=== PATIENT | female | born 1945 | race Caucasian/White ===

== ENCOUNTER → 2016-07-30 | Day surgery (SDC) | payer OTHER ==
[2016-07-22 11:02] VITALS: Ht 157.5 cm; Wt 65.9 kg
[~2016-07-30] VITALS: Ht 157.5 cm; Wt 65.9 kg
[~2016-07-30] MED LIST: 500ML BSS 0.3ML EPI 1:1000PF IRRIG ONE; ACETAMINOPHEN 325 MG TAB PO PRN; AMVISC PLUS 0.8ML SYRINGE INT OCU ONE; ATROPINE SULFATE 0.1 MG/ML 5ML SYR IV PRN; AcetaZOLAMIDE 250 MG TAB PO SCH; BETAXOLOL HCL 0.25% OP SUSP PER DROP CHARGE OPL SCH; BRIMONIDINE TART 0.2% OP SOLN PER DROP CHARGE ONE; BSS FLUSH ONE; CALC600T9 PO; ENDOCOAT 0.85ML SYRINGE INT OCU ONE; EpHEDrine SULFATE INJ 50 MG/ML AMP IV PRN; EpINEphrine INJ 1MG/ML AMP 1 MG/ML AMP ONE; LACTATED RINGER'S 1000ML 500 ML IV SCH; LIDOCAINE 4% OP SOLN DROP CHARGE ONE; LIDOCAINE 4% OP SOLN DROP CHARGE OPL SCH; LIDOCAINE HCL 1% MPF 2 ML VIAL ONE; MIDAZOLAM HCL 1 MG/ML 2ML VIAL ONE; MIX: 4ML BSS 1ML EPI 1:1000 PF INSTIL ONE; MOXIFLOXACIN OPH SOLN PER DROP CHARGE ONE; MULTTAB58 PO; OCUCOAT 1 ML SOLN IO ONE; OFLO0.3S4 OPL; POVIDONE-IODINE OP SOLN 30 ML BTL ONE; PRED1SUS3 OPL; PROPARACAINE 0.5% OP SOLN PER DROP CHARGE OPL SCH; TOBRAMYCIN/DEXAMETHASONE OPH OINT PER APPLN CHARGE ONE
--- NOTE | 2016-07-30 08:29 | History & Physical Bridge - [place] ---
H&P Re-Evaluation Bridge Note: I have examined the patient, reviewed the History & Physical and in the interval since the performance of the History & Physical I have noted the following changes of clinical significance: No changes noted
[2016-07-30] MEDS: PHENYLEPHRINE HCL 2.5% OP SOLN PER DROP CHARGE OPL SCH ×2 (10:33→10:37)
[2016-07-30] MEDS: TROPICAMIDE 1% OP SOLN PER DROP CHARGE OPL SCH ×2 (10:34→10:38)
[2016-07-30] MEDS: CYCLOPENTOLATE HCL 1% OP SOLN PER DROP CHARGE OPL SCH ×2 (10:35→10:39)
[2016-07-30] MEDS: MOXIFLOXACIN OPH SOLN PER DROP CHARGE OPL SCH ×2 (10:36→10:45)
--- NOTE | 2016-07-30 11:12 | Discharge Instructions-SurgCtr ---
Discharge Instructions Date of Service Jul 30, 2016. Visit Reason for Visit: Cataract Left Eye Discharge Discharge Diagnosis / Problem: lens implant left eye Discharge Goals Goal(s): Improve function Activity Recommendations Activity Limitations: resume your previous activity Lifting Limitations: no more than 10 pounds Exercise/Sports Limitations: gradually increase as tolerated May Resume Sexual Activity: when tolerated Shower/Bathe: tomorrow Driving or Machine Use: resume 1 day after discharge Anesthesia . Post Anesthesia Instructions: If you have had General Anesthesia or IV Sedation: * Do not drive today. * Resume driving when surgeon permits. * Do not make important decisions or sign legal documents today. * Call surgeon for: 1. Temperature elevations greater than 101 degrees F. 2. Uncontrollable pain. 3. Excessive bleeding. 4. Persistent nausea and vomiting. 5. Medication intolerance (nausea, vomiting or rash). * For nausea and vomiting use only clear liquids such as: tea, soda, bouillon until nausea subsides, then gradually increase diet as tolerated. * If you have any concerns or questions, call your surgeon's office. If physician is unavailable and it is an emergency, call 911 or go to the nearest emergency room. . Instructions / Follow-Up Instructions / Follow-Up ACTIVITY RECOMMENDATIONS: * Light activities. * Mild irritation and blurred vision are common for the first few days. * You may walk outside, read, watch television. * Redness around the white part of the eye is common. MEDICATIONS: Resume previous medications unless instructed otherwise by your surgeon. * Take white Diamox (Acetazolamide) tablet at 1 pm today. Start all eye drops at 1 pm today: * Eye drops (today and tomorrow): Prednisone - one drop in operative eye every 3 hours while awake Ofloxacin - one drop in operative eye every 3 hours while awake SPECIAL CARE INSTRUCTIONS: * Tape plastic shield over eye to sleep at night. Call your doctor at with any concerns or problems. FOLLOW UP VISIT: Follow-up with Dr Licea at [place] office as scheduled. Diet Recommendations Home Diet: no limitations Procedures Procedures Performed: cataract extraction with lens implant Pending Studies Studies pending at discharge: no Medical Emergencies . Who to Call and When: Medical Emergencies: If at any time you feel your situation is an emergency, please call 911 immediately. . Non-Emergent Contact Non-Emergency issues call your: Vault Custodian Call Non-Emergent contact if: your pain is not controlled [phone] . . "Provider Documentation" section prepared by Nasir Licea.
--- NOTE | 2016-07-30 11:16 | [facility] Operative Report ---
Operative Report Date of Service Jul 30, 2016. Operative Report 1. PREOPERATIVE DIAGNOSIS: Senile nuclear cataract, left eye. 2. POSTOPERATIVE DIAGNOSIS: Senile nuclear cataract, left eye. 3. PROCEDURE: Phacoemulsification of left cataract with posterior chamber lens implant, type Bausch & Lomb, model MI60L, power +23.5 diopters. ANESTHESIA: Local standby. SURGEON: Dr. Licea. COMPLICATIONS: None. OPERATING TIME: 10 minutes. 4. OPERATION AND FINDINGS: DESCRIPTION OF PROCEDURE: The left pupil was dilated. The anesthetic was administered using a topical technique. The left eye was prepped and draped. A speculum was placed. A clear corneal incision was formed. The chamber was filled with Amvisc Plus and Endocoat. Epinephrine solution was used. A paracentesis was placed. A capsulorrhexis was performed. The nucleus was hydrodissected. The lens was removed with phacoemulsification. Time was 3.90 seconds. The aspiration unit was used to remove the cortex. The capsule was filled with Amvisc Plus. The lens implant was folded and placed into the capsule. The incisions was hydrated. A second limbal keratotomy incision was placed 180 degrees from the original. The Amvisc was aspirated. The wounds were secure. The chamber was deep. The pupil was round. Brimonidine, TobraDex ointment and Vigamox solution were placed. The speculum was removed. The patient was returned to the Recovery Room in stable condition. I attest to the content of the Intraoperative Record and any orders documented therein. Any exceptions are noted below. The scribe's documentation has been prepared in my presence, under my direction and personally reviewed by me in its entirety. I confirm that the note above accurately reflects all work, treatment, procedures, and medical decision making performed by me. I personally scribed for Nasir Licea M.D. (MARK) on 07/30/16 at 11:16. Electronically submitted by Nery MÉNDEZ).
[2016-07-30 11:17] VITALS: TEMP 36.4
--- NOTE | 2016-07-30 11:36 | Anesthesia Progress Nt - [facility] ---
Anesthesia Post Op Note Date & Time Jul 30, 2016 at 11:36 Vital Signs Pain Intensity: 0 Vital Signs Past 12 Hours Date Time Temp Pulse Resp B/P Pulse Ox O2 Delivery O2 Flow Rate FiO2 07/30/16 11:17 36.4 59 16 132/65 97 Room Air 07/30/16 10:23 36.6 62 16 156/76 95 Room Air Notes Mental Status: alert / awake / arousable, participated in evaluation Pt Amnestic to Procedure: Yes Nausea / Vomiting: adequately controlled Pain: adequately controlled Airway Patency, RR, SpO2: stable & adequate BP & HR: stable & adequate Hydration State: stable & adequate Anesthetic Complications: no major complications apparent
[2016-07-30 11:41] VITALS: BP 139/58; PULSE 47; O2SAT 99
== END | disposition home or self-care (01) ==
LOC: X.SURG 09:46
PROVIDERS: ATTEND Specialist
DX: H25.12 Age-related nuclear cataract, left eye (principal)

== ENCOUNTER → 2016-08-13 | Day surgery (SDC) | payer OTHER ==
[2016-08-11 10:24] VITALS: Ht 157.5 cm; Wt 65.9 kg
[~2016-08-13] VITALS: Ht 157.5 cm; Wt 65.9 kg
[~2016-08-13] MED LIST changes: -BETAXOLOL HCL 0.25% OP SUSP PER DROP CHARGE OPL SCH; +BETAXOLOL HCL 0.25% OP SUSP PER DROP CHARGE OPR SCH; +FENTANYL CITRATE INJ 50 MCG/1 ML 2 ML VIAL IV PRN; +FLUMAZENIL 0.1 MG/1 ML 10 ML VIAL IV PRN; +HYDROmorphone INJ 2 MG/ML SYR/VIAL IV PRN; +LABETALOL HCL IV 5 MG/ML 20ML IV PRN; -LIDOCAINE 4% OP SOLN DROP CHARGE OPL SCH; +LIDOCAINE 4% OP SOLN DROP CHARGE OPR SCH; +MEPERIDINE HCL 25 MG/ML CARP IV PRN; +NALOXONE HCL 0.4 MG/1 ML VIAL/CARP IV PRN; -OFLO0.3S4 OPL; +ONDANSETRON INJ 2 MG/ML 2 ML VIAL IV PRN; +PHENYLEPHRINE 100MCG/ML 5ML SYR IV PRN; -PROPARACAINE 0.5% OP SOLN PER DROP CHARGE OPL SCH; +PROPARACAINE 0.5% OP SOLN PER DROP CHARGE OPR SCH
[2016-08-13] MEDS: PHENYLEPHRINE HCL 2.5% OP SOLN PER DROP CHARGE OPR SCH ×2 (08:10→08:14)
[2016-08-13] MEDS: TROPICAMIDE 1% OP SOLN PER DROP CHARGE OPR SCH ×2 (08:11→08:15)
[2016-08-13] MEDS: CYCLOPENTOLATE HCL 1% OP SOLN PER DROP CHARGE OPR SCH ×2 (08:12→08:16)
[2016-08-13] MEDS: MOXIFLOXACIN OPH SOLN PER DROP CHARGE OPR SCH ×2 (08:12→08:22)
--- NOTE | 2016-08-13 08:50 | Discharge Instructions-SurgCtr ---
Discharge Instructions Date of Service Aug 13, 2016. Visit Reason for Visit: Cataract Right Eye Discharge Discharge Diagnosis / Problem: lens implant right eye Discharge Goals Goal(s): Improve function Activity Recommendations Activity Limitations: resume your previous activity Lifting Limitations: no more than 10 pounds Exercise/Sports Limitations: gradually increase as tolerated May Resume Sexual Activity: when tolerated Shower/Bathe: tomorrow Driving or Machine Use: resume 1 day after discharge Anesthesia . Post Anesthesia Instructions: If you have had General Anesthesia or IV Sedation: * Do not drive today. * Resume driving when surgeon permits. * Do not make important decisions or sign legal documents today. * Call surgeon for: 1. Temperature elevations greater than 101 degrees F. 2. Uncontrollable pain. 3. Excessive bleeding. 4. Persistent nausea and vomiting. 5. Medication intolerance (nausea, vomiting or rash). * For nausea and vomiting use only clear liquids such as: tea, soda, bouillon until nausea subsides, then gradually increase diet as tolerated. * If you have any concerns or questions, call your surgeon's office. If physician is unavailable and it is an emergency, call 911 or go to the nearest emergency room. . Instructions / Follow-Up Instructions / Follow-Up ACTIVITY RECOMMENDATIONS: * Light activities. * Mild irritation and blurred vision are common for the first few days. * You may walk outside, read, watch television. * Redness around the white part of the eye is common. MEDICATIONS: Resume previous medications unless instructed otherwise by your surgeon. * Take white Diamox (Acetazolamide) tablet at 1 pm today. Start all eye drops at 1 pm today: * Eye drops (today and tomorrow): Prednisone - one drop in operative eye every 3 hours while awake Ofloxacin - one drop in operative eye every 3 hours while awake SPECIAL CARE INSTRUCTIONS: * Tape plastic shield over eye to sleep at night. Call your doctor at with any concerns or problems. FOLLOW UP VISIT: Follow-up with Dr Licea at [place] office as scheduled. Diet Recommendations Home Diet: no limitations Procedures Procedures Performed: cataract extraction with lens implant Pending Studies Studies pending at discharge: no Medical Emergencies . Who to Call and When: Medical Emergencies: If at any time you feel your situation is an emergency, please call 911 immediately. . Non-Emergent Contact Non-Emergency issues call your: Eye Dropper Assembler Call Non-Emergent contact if: your pain is not controlled [phone] . . "Provider Documentation" section prepared by Nasir Licea.
--- NOTE | 2016-08-13 08:54 | [facility] Operative Report ---
Operative Report Date of Service Aug 13, 2016. Operative Report 1. PREOPERATIVE DIAGNOSIS: Senile nuclear cataract, right eye. 2. POSTOPERATIVE DIAGNOSIS: Senile nuclear cataract, right eye. 3. PROCEDURE: Phacoemulsification of right cataract with posterior chamber lens implant, type Bausch & Lomb, model MI60L, power +24.5 diopters. ANESTHESIA: Local standby. SURGEON: Dr. Licea. COMPLICATIONS: None. OPERATING TIME: 10 minutes. 4. OPERATION AND FINDINGS: DESCRIPTION OF PROCEDURE: The right pupil was dilated. The anesthetic was administered using a topical technique. The right eye was prepped and draped. A speculum was placed. A clear corneal incision was formed. The chamber was filled with Amvisc Plus and Endocoat. Epinephrine solution was used. A paracentesis was placed. A capsulorrhexis was performed. The nucleus was hydrodissected. The lens was removed with phacoemulsification. Time was 2.00 seconds. The aspiration unit was used to remove the cortex. The capsule was filled with Amvisc Plus. The lens implant was folded and placed into the capsule. A second astigmatic incision was placed at the limbus 180 degrees from the original incision. The incisions were hydrated. The Amvisc was aspirated. The wounds were secure. The chamber was deep. The pupil was round. Brimonidine, TobraDex ointment and Vigamox solution were placed. The speculum was removed. The patient was returned to the Recovery Room in stable condition. I attest to the content of the Intraoperative Record and any orders documented therein. Any exceptions are noted below. The scribe's documentation has been prepared in my presence, under my direction and personally reviewed by me in its entirety. I confirm that the note above accurately reflects all work, treatment, procedures, and medical decision making performed by me. I personally scribed for Nasir Licea M.D. (MARK) on 08/13/16 at 08:54. Electronically submitted by Nery Adan ([email or web address]).
[2016-08-13 08:55] VITALS: TEMP 36.3
--- NOTE | 2016-08-13 09:09 | Anesthesia Progress Nt - [facility] ---
Anesthesia Post Op Note Date & Time Aug 13, 2016 at 09:08 Vital Signs Pain Intensity: 0 Vital Signs Past 12 Hours Date Time Temp Pulse Resp B/P Pulse Ox O2 Delivery O2 Flow Rate FiO2 08/13/16 08:55 36.3 45 16 151/82 98 Room Air 08/13/16 08:02 36.7 52 16 153/76 98 Room Air Notes Mental Status: alert / awake / arousable, participated in evaluation Pt Amnestic to Procedure: Yes Nausea / Vomiting: adequately controlled Pain: adequately controlled Airway Patency, RR, SpO2: stable & adequate BP & HR: stable & adequate Hydration State: stable & adequate Anesthetic Complications: no major complications apparent
[2016-08-13 09:10] VITALS: BP 128/78; PULSE 52; O2SAT 99
== END | disposition home or self-care (01) ==
LOC: X.SURG 07:37
PROVIDERS: ATTEND Specialist
DX: H25.11 Age-related nuclear cataract, right eye (principal)

== ENCOUNTER → 2016-12-15 | Outpatient (CLI) | payer OTHER ==
[~2016-12-15] MED LIST changes: -500ML BSS 0.3ML EPI 1:1000PF IRRIG ONE; -ACETAMINOPHEN 325 MG TAB PO PRN; -AMVISC PLUS 0.8ML SYRINGE INT OCU ONE; -ATROPINE SULFATE 0.1 MG/ML 5ML SYR IV PRN; -AcetaZOLAMIDE 250 MG TAB PO SCH; -BETAXOLOL HCL 0.25% OP SUSP PER DROP CHARGE OPR SCH; -BRIMONIDINE TART 0.2% OP SOLN PER DROP CHARGE ONE; -BSS FLUSH ONE; -ENDOCOAT 0.85ML SYRINGE INT OCU ONE; -EpHEDrine SULFATE INJ 50 MG/ML AMP IV PRN; -EpINEphrine INJ 1MG/ML AMP 1 MG/ML AMP ONE; -FENTANYL CITRATE INJ 50 MCG/1 ML 2 ML VIAL IV PRN; -FLUMAZENIL 0.1 MG/1 ML 10 ML VIAL IV PRN; -HYDROmorphone INJ 2 MG/ML SYR/VIAL IV PRN; -LABETALOL HCL IV 5 MG/ML 20ML IV PRN; -LACTATED RINGER'S 1000ML 500 ML IV SCH; -LIDOCAINE 4% OP SOLN DROP CHARGE ONE; -LIDOCAINE 4% OP SOLN DROP CHARGE OPR SCH; -LIDOCAINE HCL 1% MPF 2 ML VIAL ONE; -MEPERIDINE HCL 25 MG/ML CARP IV PRN; -MIDAZOLAM HCL 1 MG/ML 2ML VIAL ONE; -MIX: 4ML BSS 1ML EPI 1:1000 PF INSTIL ONE; -MOXIFLOXACIN OPH SOLN PER DROP CHARGE ONE; -NALOXONE HCL 0.4 MG/1 ML VIAL/CARP IV PRN; -OCUCOAT 1 ML SOLN IO ONE; -ONDANSETRON INJ 2 MG/ML 2 ML VIAL IV PRN; -PHENYLEPHRINE 100MCG/ML 5ML SYR IV PRN; -POVIDONE-IODINE OP SOLN 30 ML BTL ONE; -PROPARACAINE 0.5% OP SOLN PER DROP CHARGE OPR SCH; -TOBRAMYCIN/DEXAMETHASONE OPH OINT PER APPLN CHARGE ONE
--- NOTE | 2016-12-15 14:32 | MAMMOGRAPHY REPORT ---
BILATERAL DIGITAL SCREENING MAMMOGRAM WITH CAD: 12/15/2016 CLINICAL HISTORY: Routine screening. TECHNIQUE: Bilateral CC and MLO views were obtained. Current study was also evaluated with a Compute r Aided Detection (CAD) system. COMPARISON: Comparison is made to exams dated: 12/10/2015 mammogram, 12/04/2014 mammogram, 12/07/2013 mamm ogram, 11/28/2013 mammogram, 11/22/2012 mammogram, and 11/17/2011 mammogram - [facility] er. BREAST COMPOSITION: There are scattered areas of fibroglandular density in both breasts. FINDINGS: There are stable scattered round microcalcifications in both breasts, and minimal vascular calcification in the left breast. No suspicious mass, architectural distortion or cluster of suspici ous microcalcifications is seen. IMPRESSION: ACR BI-RADS CATEGORY 1: NEGATIVE There is no mammographic evidence of malignancy. A 1 year screening mammogram is recommended. The pa tient will receive written notification of the results. Approximately 10% of breast cancers are not detected with mammography. A negative mammographic report should not delay biopsy if a clinically suggestive mass is present. Meseret Bradford M.D. ay/:12/15/2016 13:56:20 Evp Strategy: Tere WADDELL(R)([place]), [facility] letter sent: Normal 1/2 BI-RADS Code: ACR BI-RADS Category 1: Negative
== END | disposition home or self-care (01) ==
LOC: C.MAMM 07:55
PROVIDERS: ATTEND Family Medicine
DX: Z12.31 Encounter for screening mammogram for malignant neoplasm of breast (principal); M85.88 Other specified disorders of bone density and structure, other site; M81.0 Age-related osteoporosis without current pathological fracture

== ENCOUNTER → 2017-12-28 | Outpatient (CLI) | payer OTHER ==
--- NOTE | 2017-12-29 15:20 | MAMMOGRAPHY REPORT ---
BILATERAL DIGITAL SCREENING MAMMOGRAM TOMOSYNTHESIS WITH CAD: 12/28/2017 CLINICAL HISTORY: Routine screening. Patient has no complaints. TECHNIQUE: Breast tomosynthesis in addition to standard 2D mammography was performed. Current study w as also evaluated with a Computer Aided Detection (CAD) system. COMPARISON: Comparison is made to exams dated: 12/15/2016 mammogram, 12/10/2015 mammogram, 12/04/2014 zohaib mogram, 11/28/2013 mammogram, 11/22/2012 mammogram, and 11/17/2011 mammogram - [facility]. BREAST COMPOSITION: There are scattered areas of fibroglandular density in both breasts. FINDINGS: No suspicious masses, calcifications, or areas of architectural distortion are noted in either breast . There has been no significant interval change compared to prior exams. IMPRESSION: ACR BI-RADS CATEGORY 1: NEGATIVE There is no mammographic evidence of malignancy. A 1 year screening mammogram is recommended.( 019) The patient will receive written notification of the results. Some breast cancers are not detected with mammography. A negative mammographic report should not [place] y biopsy if a clinically suggestive mass is present. Park Wright M.D. ah/:12/28/2017 13:43:40 International Controller: Michelle Buchanan, [facility] letter sent: Normal 1/2 BI-RADS Code: ACR BI-RADS Category 1: Negative
== END | disposition home or self-care (01) ==
LOC: C.MAMM 13:03
PROVIDERS: ATTEND Family Medicine
DX: Z12.31 Encounter for screening mammogram for malignant neoplasm of breast (principal)

== ENCOUNTER 2018-08-17 09:53 | Inpatient (IN) ==
--- NOTE | 2018-08-02 14:35 | Anesthesiology Consultation ---
Date of Service August 02, 2018 Assessment & Plan (1) Encounter for pre-operative examination: Pt evaluated by cardiology prior to R VIKCI done 03/17/18 for bifascicular block: "She is asymptomatic related to this. She has had a longstanding resting bradycardia, although the evidence of bifascicular block is advanced over the last 3 years...low cardiac risk to move forward with her surgery, she does not require any intervention for her rhythm at this time. I did discuss the evidence of conduction disease and the importance of reporting any symptoms of lightheadedness, dizziness, or syncope in the future. At this time, she is not a candidate for a pacemaker and would not need any additional treatment before her procedure. She is on no offending medications. Follow up with Cardiology can be on an as needed basis." Chart Review Chart Review: Acceptable Risk for Surgery and Patient seen in Pre Admission Testing Teaching & Discussion Instructed NPO after midnight before surgery, except medications with 15 cc of water. Medication instructions provided according to the PAT guidelines. History Surgery Operation Date: 08/17/18 07:00 Proposed Procedures p Left Total Hip Replacement - Lai Elliott MD Height/Weight Height: 5 ft 3 in Weight: 64 kg Allergies Allergy/AdvReac Type Severity Reaction Status Date / Time No Known Allergies Allergy Verified 08/02/18 07:31 Medications Home Medications Medication Instructions Recorded Confirmed Last Taken Multi For Her 1 tab-cap PO QAM 02/04/18 08/02/18 03/16/18 07:00 Nicotinamide 500 mg PO BID 08/02/18 08/02/18 Unknown calcium carbonate-vitamin D3 1 cap PO BID 08/02/18 08/02/18 Unknown [Calcium 600 + D(3)] Past Medical History Medical History Asthma CHILDHOOD ASTHMA (NO CURRENT PROBLEMS) Bifascicular block Osteoarthritis Skin cancer PRE-CANCEROUS SKIN REMOVAL (FOLLOWS WITH DERMATOLOGY) Past Surgical History Surgical History History of cataract surgery RT/LEFT History of colonoscopy History of tooth extraction History of total hip arthroplasty RT Past Anesthesia History No Hx of Anesthesia Complications and No Family Hx of Anesthesia Complications History of PONV No Motion Sickness Screening History of Motion Sickness: No Social History Smoking Status: Former smoker tobacco type: cigarettes Smoking End Date: 1998 Hx Alcohol Use: Yes Alcohol type: beer alcohol intake frequency: a few times a month Hx Substance Use: No substance use type: does not use Exercise / Class Metabolic Activity II 4-5 Yardwork/Stairs/Walk up hill (Denies CP or SOB with stairs) Review of Systems Pt denies any recent chest pain, shortness of breath, palpitations, cough, fever or URI. Physical Exam Vital Signs BP: 154/74 (pt reports BP is usually high in medical settings) P: 53bpm SPO2: 95% RA T: 97.9 F R: 16 ENMT Mouth: + dentures (partial upper and lower, does not usually wear) and + dental restorations (few crowns); no chipped teeth and no loose teeth Thyromental Distance: > or= 3.5 Finger Breadths (3.5) Mallampati Class: III Neck normal visual inspection; neck extension not limited Respiratory normal respiratory effort Auscultation: lungs clear to auscultation bilaterally Cardiovascular Rate/Rhythm: regular rhythm and + bradycardic Heart Sounds: no murmur Vessels: no carotid bruit Extremities: no edema Testing Electrocardiogram Date: 03/15/18 Findings: + SB @ (52) RBBB + LAFB. Moderate voltage criteria for LVH, may be normal variant. Chest X-Ray Date: 02/12/18 Findings: + NAD Laboratory Results 08/02/18 14:54 08/02/18 14:54 Blood Type A Positive 08/02/18 14:54 Antibody Screen NEGATIVE 08/02/18 14:54 PT 10.2 Seconds (9.0-12.0) 08/02/18 14:54 INR 1.0 (0.9-1.1) 08/02/18 14:54 APTT 24.3 Seconds (21.0-31.0) 08/02/18 14:54
--- NOTE | 2018-08-02 14:45 | PAT Medication Instructions ---
Medication Instructions Date of Service August 02, 2018 Home Medications Multi For Her 1 tab-cap PO QAM Nicotinamide 500 mg PO BID calcium carbonate-vitamin D3 1 cap PO BID DO NOT take the morning of surgery Multi For Her 1 tab-cap PO QAM Nicotinamide 500 mg PO BID calcium carbonate-vitamin D3 1 cap PO BID Take evening before surgery Nicotinamide 500 mg PO BID calcium carbonate-vitamin D3 1 cap PO BID *NOTHING TO EAT OR DRINK AFTER MIDNIGHT* Other Notes If you have any questions please call us at [phone] or [phone] or [phone] or [phone]
[2018-08-02 15:45] LABS: Basophils # (auto) 0.06 K/uL (0-0.2); Basophils % (auto) 0.9 %; Eosinophils # (auto) 0.06 K/uL (0-0.5); Eosinophils % (auto) 0.9 %; Hematocrit (blood only) 39.3 % (37-47); Hemoglobin 13.2 g/dL (12.0-16.0); Immature Granulocytes # (auto) 0.02 K/uL (0.00-0.02); Immature Granulocytes % (auto) 0.3 %; Lymphocytes % (auto) 23.6 %; Mean Corpuscular Hgb Conc 33.6 g/dL (32-36); Mean Corpuscular Volume 89.3 fL (80-100); Mean Platelet Volume 11.1 fL (7.4-10.4); Monocytes % (auto) 4.7 %; Neutrophils # (auto) 4.42 K/uL (1.4-6.5); Neutrophils % (auto) 69.6 %; Platelet Count 269 K/uL (130-400); RDW Standard Deviation 42.6 fL (36.4-46.3); White Blood Count 6.36 K/uL (4.8-10.8)
[2018-08-02 15:50] LABS: BUN Creatinine Ratio 21.8 (10-20); Blood Urea Nitrogen 15 mg/dl (7-18); C Reactive Protein < 0.29 mg/dl (0-0.29); Calcium 9.5 mg/dl (8.5-10.1); Carbon Dioxide 30 mmol/L (21-32); Chloride 110 mmol/L (98-107); Creatinine Clr Calc Pharmacy 62.6 ml/min; Est GFR (African American) 97.3; Est GFR (Non-African American) 83.9; Glucose 84 mg/dl (70-99); Potassium 3.8 mmol/L (3.5-5.1); Sodium 144 mmol/L (136-145)
[2018-08-02 16:01] LABS: Partial Thromboplastin Ratio 0.9; Partial Thromboplastin Time 24.3 Seconds (21.0-31.0); Prothrombin Time 10.2 Seconds (9.0-12.0)
--- NOTE | 2018-08-14 10:13 | History and Physical Report ---
DATE: 08/17/2018 CHIEF COMPLAINT: Left hip pain. HISTORY OF PRESENT ILLNESS: The patient is a 73-year-old female now about 5 months out from right hip replacement, who presents for surgical treatment of her left hip. She has had a long history of hip problems. She underwent this right hip replacement 5 months ago and has done well from this. She continues to be limited by her left hip pain. She describes groin pain, thigh pain. The more she walks, the more it hurts. She has nighttime pain. She has difficulty putting her shoes and socks on. She would like to proceed with surgical treatment. PAST MEDICAL HISTORY: 1. Arthritis. 2. Actinic keratosis. 3. Low back pain/sciatica. PAST SURGICAL HISTORY: Include: 1. Cataract surgery. 2. Right hip replacement done 03/17/2018. ALLERGIES: None. CURRENT MEDICINES: Include: 1. Calcium with vitamin D. 2. Women's multivitamin. 3. Nicotinamide. 4. Efudex. 5. Meloxicam. SOCIAL HISTORY: The patient is a 73-year-old female, lives in [place]. She is . Quit smoking in 1998. No significant alcohol intake. FAMILY HISTORY: Noncontributory. REVIEW OF HISTORY: Negative for diabetes, neurologic problem, vascular problem, bleeding disorders. No chest pain or shortness of breath. No history of DVT or PE. No known bleeding problems. PHYSICAL EXAMINATION: GENERAL: Reveals a pleasant, healthy, thin female. Looks to be in excellent health. HEENT: Benign. NECK: Supple. No lymphadenopathy. LUNGS: Clear to auscultation. HEART: Regular rate and rhythm. ABDOMEN: Soft, nontender, nondistended. EXTREMITIES: Grossly neurovascularly intact except as follows. Examination of both hips revealed the patient walks with minimal limp. Examination of left hip reveals leg lengths to be pretty equal. She does have limited hip motion on the left with internal rotation neutral, which recreates pain. She has negative straight leg raise. She can externally rotate to 35 degrees. She is neurologically intact. Examination of the right hip reveals well-healed incision. She has pain with hip motion. She is neurologically intact. X-RAYS: X-rays of the left hip reviewed, shows advanced left hip DJD. She had fairly concentric loss of the joint space. Small osteophytes. ASSESSMENT: A 73-year-old female now about 5 months out from right hip replacement, doing well with advanced left hip degenerative joint disease. She is limited by left hip pain and would like to proceed with left hip replacement. PLAN: We will take her to the Operating Room and do a left total hip replacement. The risks and benefits of this procedure were explained to the patient include but not limited to DVT, PE, , infection, neurological injury, vascular injury, bleeding problem, pain, limited range of motion, stiffness, failure to relief of symptoms, incomplete relief of symptoms, need for further surgery in future, fracture, leg length inequality, nerve palsy, etc. The patient understands and desires to proceed. Informed consent was obtained. She has held her Mobic 10 days preop. She should be able to be discharged to home with the [facility] postoperatively.
[~2018-08-17 09:53] MED LIST changes: +ACETAMINOPHEN 500 MG TAB PO SCH; +BUPIVACAINE 0.5 % 5 MG/1 ML PF 10ML VIAL ONE; -CALC600T9 PO; +CEFAZOLIN 2000MG 2,000 MG/15 ML SYR IV SCH; +FAMOTIDINE 20 MG TAB PO SCH; +GABAPENTIN 300 MG PO SCH; +LR 500ML BOLUS, THEN 15ML/HR IV SCH; +LR 60ML/HR IV SCH; +METOCLOPRAMIDE HCL 10 MG TABLET PO SCH; -MULTTAB58 PO; -PRED1SUS3 OPL; +TRANEXAMIC ACID 1,000 MG **IV Pre-op IV SCH
--- NOTE | 2018-08-17 11:00 | History & Physical Bridge Note ---
Date of Service August 17, 2018 History & Physical Bridge Note I have examined the patient, reviewed the History & Physical and in the interval since the performance of the History & Physical I have noted the following changes of clinical significance: no changes noted
[2018-08-17] MEDS ORDERED: BACITRACIN INJ 50,000 UNIT VIAL ONE (11:48)
[2018-08-17] MEDS ORDERED: BUPIVACAINE/EPINEPHRINE 0.5% MPF 1:200,000 30 ML VIAL ONE (11:48)
[2018-08-17] MEDS ORDERED: fentaNYL citrate 100 MCG/2 ML VIAL ONE (12:05)
[2018-08-17] MEDS ORDERED: MIDAZOLAM HCL 1 MG/ML 2ML VIAL ONE (12:05)
[2018-08-17] MEDS ORDERED: MoRPHine SULFATE PF 1 MG/ML 10 ML AMP/VIAL ONE (12:27)
[2018-08-17] MEDS ORDERED: NALBUPHINE HCL INJ 10 MG/ML AMP IV PRN (12:49)
[2018-08-17] MEDS ORDERED: ONDANSETRON INJ 2 MG/ML 2 ML VIAL IV PRN (12:49)
[2018-08-17] MEDS ORDERED: KETOROLAC TROMETHAMINE 15 MG/ML VIAL IV PRN (12:49)
[2018-08-17] MEDS ORDERED: NALOXONE HCL 1 MG in SODIUM CHLORIDE 0.9% 1000ML 1,000 ML IV PRN (12:49)
[2018-08-17] MEDS ORDERED: MoRPHine SULFATE PF 1 MG/ML 10 ML AMP/VIAL INT SPINAL ONE (12:49)
[2018-08-17] MEDS ORDERED: NALOXONE HCL 0.08 MG in SYRINGE 1.8 ML IV PRN (12:49)
[2018-08-17] MEDS ORDERED: MEPERIDINE HCL 25 MG/ML CARP IV PRN (12:49)
[2018-08-17] MEDS ORDERED: ePHEDrine sulfate 50 MG/ML AMP IV PRN (12:49)
[2018-08-17] MEDS ORDERED: PROMETHAZINE HCL 6.25 MG in SODIUM CHLORIDE 0.9% 50 ML IV PRN (12:49)
[2018-08-17] MEDS ORDERED: DiphenhydrAMINE HCL 50 MG/ML VIAL IV PRN (12:49)
[2018-08-17] MEDS ORDERED: LACTATED RINGER'S 500 ML IV PRN (12:49)
[2018-08-17] MEDS ORDERED: NALOXONE HCL 0.4 MG/1 ML VIAL/CARP IV PRN ×2 (12:49→15:42)
[2018-08-17] MEDS ORDERED: NO NARCOTICS OR SEDATIVES SCH (13:00)
[2018-08-17] MEDS ORDERED: PROPOFOL IV EMULSION 10 MG/ML 20 ML VIAL IV ONE (13:02)
[2018-08-17] MEDS ORDERED: LIDOCAINE HCL 2% 2 ML VIAL/AMP(20MG/ML) INFIL ONE (13:02)
[2018-08-17] MEDS ORDERED: ePHEDrine sulfate 50 MG/ML SYR ONE (13:47)
--- NOTE | 2018-08-17 14:25 | Post Operative Brief Note ---
Immediate Post Op Note v1 Date of Surgery August 17, 2018 Pre & Post Diagnosis Operation Date: 08/17/18 12:30 Pre-Op Diagnosis: Left Hip Advanced Degenerative Joint Disease Post-Op Diagnosis: Left Hip Advanced Degenerative Joint Disease Procedure Operation Date: 08/17/18 12:30 Actual Procedures p Left Total Hip Arthroplasty, Uncemented(Left) - Lai Elliott MD Surgeon Lai Elliott MD Duct Layer Supervisor Emily, PAC Estimated Blood Loss 200 Findings Consistent with Post-Op Diagnosis Fluids 1500 cc Specimens Left Femoral Head Drains Fam Catheter Anesthesia Type Spinal MAC Complications none Disposition Accompanied Patient To Recovery: Yes Disposition: Recovery Room
--- NOTE | 2018-08-17 14:53 | Anesthesiology Progress Note ---
Date of Service August 17, 2018 Anesthesia Post Procedure Vital Signs Vital Signs: Temp Pulse Pulse Resp BP BP Pulse Ox 08/17/18 14:40 82 16 119/52 L 95 08/17/18 14:30 82 15 129/53 L 97 08/17/18 14:23 36.4 C L 86 19 120/46 L 98 08/17/18 10:30 36.3 C L 62 18 179/86 H 100 Notes Mental Status: alert / awake / arousable Patient Amnestic to Procedure: Yes Nausea / Vomiting: adequately controlled Pain: adequately controlled Airway Patency, RR, SpO2: stable & adequate BP & HR: stable & adequate Hydration State: stable & adequate Neuraxial Anesthesia: was administered and sensory block is resolving Anesthetic Complications: no major complications apparent
--- NOTE | 2018-08-17 15:09 | XRay Report ---
XR hip 1V LT w pelvis CLINICAL HISTORY: Postoperative evaluation. COMPARISON: Pelvis and left hip radiographs August 02, 2018. FINDINGS: Alignment of the total left hip arthroplasty is anatomic. There is no fracture or unexpect ed radiopaque foreign body. Skin javan are noted. There are 2 acetabular screws. A right hip arthro plasty is also noted. IMPRESSION: Expected findings following total left hip arthroplasty. Electronically signed by: Joseph Rizzo M.D. 08/17/2018 3:07 PM
[2018-08-17] MEDS ORDERED: BISACODYL 10 MG SUPP PR PRN (15:42)
[2018-08-17] MEDS ORDERED: ALUMINUM/MAGNESIUM SUSP 30 ML UDC PO PRN (15:42)
[2018-08-17] MEDS ORDERED: MAGNESIUM HYDROXIDE SUSP 30 ML UDC PO PRN (15:42)
[2018-08-17] MEDS ORDERED: TAMSULOSIN HCL 0.4 MG CAP PO PRN (15:42)
[2018-08-17] MEDS: KETOROLAC TROMETHAMINE 15 MG/ML VIAL IV SCH (18:24)
[2018-08-17] MEDS: SODIUM CHLORIDE 0.9% 1000ML 1,000 ML IV SCH ×2 (18:24→18:36)
[2018-08-17] MEDS: FERROUS GLUCONATE 324 MG TAB PO SCH (18:32)
[2018-08-17] MEDS: CEFAZOLIN 1000MG 1,000 MG/7.5 ML SYR IV SCH (19:32)
[2018-08-17] MEDS ORDERED: [UNRECOGNIZED DRUG - OTHER] PO SCH (21:00)
[2018-08-17] MEDS ORDERED: TRANEXAMIC ACID 1,000 MG in 0.9 % SODIUM CHLORIDE 100 ML IV SCH (21:00)
[2018-08-17] MEDS: ACETAMINOPHEN 500 MG TAB PO SCH (21:13)
[2018-08-17] MEDS: SENNA 8.6 MG TAB PO SCH (21:14)
[2018-08-17] MEDS: CALCIUM 600MG + VIT D 400 IU TAB PO SCH (21:14)
[2018-08-17] MEDS: DOCUSATE SODIUM 100 MG CAP PO SCH (21:15)
[2018-08-17] MEDS: ASPIRIN 81 MG ECTAB PO SCH (21:15)
--- NOTE | 2018-08-18 01:43 | Operative Report ---
DATE OF OPERATION: 08/17/2018 SURGEON: Lai Elliott MD WHITING CAN WORKER: RAMONA Coreas PREOPERATIVE DIAGNOSIS: Left hip degenerative joint disease. POSTOPERATIVE DIAGNOSIS: Left hip degenerative joint disease. PROCEDURE PERFORMED: Left uncemented ceramic on highly cross-linked polyethylene total hip arthroplasty. COMPLICATIONS: None. ESTIMATED BLOOD LOSS: 200 mL FLUID REPLACEMENT: 1500 mL crystalloid fluid replacement. ANESTHESIA: Spinal. DRAINS: None. SPECIMENS: Left femoral head sent for pathology. OPERATIVE INDICATIONS: The patient is a 73-year-old very active female with several-year history of increasing bilateral hip pain and discomfort. She has been through extensive conservative treatment in the past. She underwent a right hip replacement several months ago and has done well from this. She elected to proceed with left total hip arthroplasty. OPERATIVE FINDINGS: Advanced left hip DJD. She had fairly extensive grade 4 [id number] disease of the femoral head and acetabulum. Moderate size joint effusion. She had a very adherent joint capsule. OPERATIVE IMPLANTS: Operative implants consisted of: 1. Biomet G7 size 50 mm acetabular shell. 2. A 6.5 cancellous acetabular screws, 1 at 25 mm length and 1 at 35 mm length. 3. [place] hole eliminator. 4. A highly cross-linked polyethylene liner with 50 mm outer diameter and 36 mm inner diameter. 5. DePuy Corail size 10 KLA femoral stem. 6. A +1.5/36 mm ceramic articular ball. OPERATIVE PROCEDURE: The patient was taken to the operating room, identified and placed on the operative table in supine position. All contact areas were appropriately padded. IV antibiotics were provided by anesthesia team. A spinal anesthetic had been implemented in the holding area. Fam catheter was placed in sterile fashion. The patient was then placed in the right lateral decubitus position. An axillary roll was placed. Stulberg hip positioner was used for positioning. Left hip and leg were then prepped and draped in usual sterile fashion. A posterolateral approach to the left hip was then performed through a curvilinear incision centered over the greater trochanter. Sharp dissection was carried through the subcutaneous tissue down to the level of the IT band and gluteal fascia. The IT band and gluteal fascia were incised longitudinally in line with skin incision. The underlying greater trochanteric bursa was excised. The piriformis and external rotators as well as the posterior capsule were then released from the posterior aspect of the hip joint as a single layer. The capsule itself was fairly adherent to the femoral neck. Great care was taken throughout the procedure to protect the sciatic nerve at all times. The hip was internally rotated and dislocated. A femoral neck osteotomy cut was then made with the final cut about a centimeter above the lesser trochanter. Femoral head was removed and sent for pathology. The femur was retracted anteriorly. Attention was then drawn to the acetabulum. The acetabular labrum was excised. The pulvinar fat was excised. Sequential reaming of the acetabulum was then performed beginning with a size 43 and progressing up to 49. I did open just the entrance to the acetabulum with a 50 reamer as it was fairly narrow. A 50 mm Biomet G7 acetabular shell was then placed in about 40 degrees of lateral opening and 20 degrees of anteversion. It was fixed with two 6.5 cancellous acetabular screws. A trial liner was placed. Attention was then drawn to the femur. The proximal femur was entered with Onovative cutter followed by a canal finder. Broaching of the femur was then performed beginning with a size 8 and progressing up to a 10. Excellent fit with a 10. I then used a calcar reamer to smooth off the calcar. We then trialed the hip and the +1.5 articular ball provided appropriate soft tissue tension, leg lengths and full stability. We did use the same implant from the other side and we elected to place these implants. The hip was fully stable in full extension and external rotation and flexion to 90 degrees, internal rotation to a 50+ degrees. Attention was then drawn toward placement of the implants. All trial implants were removed. An apex hole eliminator was placed. Highly cross-linked polyethylene liner was placed. 1. A DePuy Corail size 10 KLA femoral stem was impacted in position. A +1.5/36 mm ceramic articular ball was placed. 2. We did use a slightly larger ball than usual due to this patient's advanced age and importance of stability. The hip was then located. It was once again found to be stable. Attention was then drawn toward closing. The wound was irrigated with copious amounts of pulsatile lavage solution. I did inject locally with 60 mL of 0.5% Marcaine with epinephrine. The patient did receive 1 gram of tranexamic acid. The posterior capsule and external rotators were then repaired through drill holes in the posterior trochanter with #2 Ti-Cron suture. The IT band and gluteal fascia were then closed with #1 PDS suture in running fashion. Subcutaneous tissues closed in 2 layer with the deep layer with #1 Vicryl sutures and subcutaneous tissue with 2-0 Dexon suture in a buried interrupted fashion. Skin was then closed with skin javan. Leg was dried and a sterile dressing of Xeroform, 4 x 4's, sterile ABD pad and foam tape was applied. The patient then transferred to the recovery room in stable condition. The patient tolerated the procedure well with no complications. All needle and sponge counts were correct at the end of the operation. I attest to the content of the Intraoperative Record and any orders documented therein. Any exceptions are noted below. MODESTOD
[2018-08-18] MEDS: KETOROLAC TROMETHAMINE 15 MG/ML VIAL IV SCH ×5 (01:52→17:35)
[2018-08-18] MEDS: SODIUM CHLORIDE 0.9% 1000ML 1,000 ML IV SCH ×2 (04:37→05:36)
[2018-08-18] MEDS: CEFAZOLIN 1000MG 1,000 MG/7.5 ML SYR IV SCH (04:37)
[2018-08-18] MEDS: ACETAMINOPHEN 500 MG TAB PO SCH ×3 (05:54→21:18)
[2018-08-18] MEDS ORDERED: DC INTRASPINAL MORPHINE ONE (06:49)
[2018-08-18] MEDS ORDERED: TRAMADOL HCL 50 MG TABLET PO PRN (06:50)
[2018-08-18] MEDS ORDERED: HYDROmorphone INJ 0.5 MG/0.5 ML SYR IV PRN (06:50)
[2018-08-18] MEDS ORDERED: ONDANSETRON INJ 2 MG/ML 2 ML VIAL IV PRN (06:50)
[2018-08-18] MEDS ORDERED: METOCLOPRAMIDE HCL INJ 5 MG/ML 2 ML VIAL IV PRN (06:50)
[2018-08-18 07:02] LABS: Basophils # (auto) 0.03 K/uL (0-0.2); Basophils % (auto) 0.5 %; Eosinophils # (auto) 0.09 K/uL (0-0.5); Eosinophils % (auto) 1.6 %; Hematocrit (blood only) 32.1 % (37-47); Hemoglobin 10.7 g/dL (12.0-16.0); Immature Granulocytes # (auto) 0.01 K/uL (0.00-0.02); Immature Granulocytes % (auto) 0.2 %; Lymphocytes % (auto) 14.1 %; Mean Corpuscular Hgb Conc 33.3 g/dL (32-36); Mean Corpuscular Volume 89.9 fL (80-100); Mean Platelet Volume 10.9 fL (7.4-10.4); Monocytes # (auto) 0.62 K/uL (0.11-0.59); Monocytes % (auto) 10.9 %; Neutrophils # (auto) 4.13 K/uL (1.4-6.5); Neutrophils % (auto) 72.7 %; Platelet Count 182 K/uL (130-400); RDW Coefficient of Variation 13.1 % (11.5-14.5); RDW Standard Deviation 43.4 fL (36.4-46.3); Red Blood Count 3.57 M/uL (4.2-5.4); White Blood Count 5.68 K/uL (4.8-10.8)
[2018-08-18 07:26] LABS: BUN Creatinine Ratio 12.5 (10-20); Calcium 8.4 mg/dl (8.5-10.1); Creatinine Clr Calc Pharmacy 59.9 ml/min; Est GFR (African American) 92.5; Est GFR (Non-African American) 79.8; Potassium 3.7 mmol/L (3.5-5.1)
[2018-08-18] MEDS ORDERED: NON-FORMULARY MEDICATION (Multivitamin-Min-Iron-Fa-Vit K [Multi For Her] 1 TABCAP) PO SCH (09:00)
[2018-08-18] MEDS: FERROUS GLUCONATE 324 MG TAB PO SCH ×2 (09:08→17:34)
[2018-08-18] MEDS: MULTIVITAMIN TAB PO SCH (09:08)
[2018-08-18] MEDS: ASPIRIN 81 MG ECTAB PO SCH ×2 (09:08→20:27)
[2018-08-18] MEDS: DOCUSATE SODIUM 100 MG CAP PO SCH ×2 (09:09→20:27)
[2018-08-18] MEDS: CALCIUM 600MG + VIT D 400 IU TAB PO SCH ×2 (09:09→20:27)
--- NOTE | 2018-08-18 11:26 | Progress Note ---
DATE: 08/18/2018 SUBJECTIVE: A 73-year-old white female postop day 1 from a left hip replacement. She is doing well. Pain is controlled. No chest pain or shortness of breath. Not feeling dizzy or lightheaded. OBJECTIVE: VITAL SIGNS: Temperature 36.8. Vital signs stable. PHYSICAL EXAMINATION: GENERAL: Shows a pleasant elderly female. She is sitting up in her bed and looks quite comfortable talking to her . EXTREMITIES: Examination of left hip and leg reveals the leg lengths to be equal. Hip is located. Dressing is clean, dry and intact. Thigh is soft and supple. She can dorsiflex and plantarflex her foot appropriately. LABORATORY DATA: Hemoglobin is 10.7. Hematocrit 32.1. Electrolytes are stable. ASSESSMENT: A 73-year-old white female postop day 1 from a left hip replacement, doing well. Pain is controlled. Hip is located. She is neurologically intact. She is anemic, but without symptoms. PLAN: 1. DVT prophylaxis including thigh-high TEDs, SCDs, and aspirin twice a day. 2. PT/OT. Weight bear as tolerated. Left total hip protocol. 3. Pain control, doing well with current pain regimen. 4. Anemia. Will continue iron supplementation. 5. Disposition: Plan to discharge to home with some home health once adequately recovered.
--- NOTE | 2018-08-18 11:30 | Anesthesiology Progress Note ---
Date of Service August 18, 2018 Anesthesia Post Procedure Vital Signs Vital Signs: Temp Pulse Pulse Resp BP Pulse Ox Pulse Ox 08/18/18 08:00 36.8 C 52 L 16 130/54 L 96 08/18/18 06:30 16 94 08/18/18 05:30 16 93 08/18/18 04:30 16 95 08/18/18 03:30 37.1 C 75 16 112/61 94 08/18/18 02:29 16 92 08/18/18 01:30 16 96 08/18/18 00:30 16 92 08/17/18 23:30 36.9 C 67 16 133/66 97 08/17/18 22:30 18 94 08/17/18 21:25 20 96 08/17/18 20:30 18 98 08/17/18 19:58 36.5 C 80 18 116/63 92 08/17/18 19:30 16 96 08/17/18 18:28 36.4 C L 73 18 147/68 H 99 08/17/18 18:25 16 100 08/17/18 17:31 36.3 C L 76 18 128/67 100 08/17/18 16:33 34.3 C L 59 L 18 116/71 99 08/17/18 16:03 36.3 C L 61 18 114/59 L 98 08/17/18 15:50 44 L 08/17/18 15:30 80 16 114/64 98 99 08/17/18 15:15 75 19 120/51 L 94 08/17/18 15:00 36.2 C L 85 18 127/58 L 94 08/17/18 14:50 82 22 106/48 L 94 08/17/18 14:40 82 16 119/52 L 95 08/17/18 14:30 82 15 129/53 L 97 08/17/18 14:23 36.4 C L 86 19 120/46 L 98 Pain Intensity Left Hip: Pain Intensity: 2 Notes Mental Status: alert / awake / arousable and participated in evaluation Patient Amnestic to Procedure: Yes Nausea / Vomiting: adequately controlled Pain: adequately controlled Airway Patency, RR, SpO2: stable & adequate Hydration State: stable & adequate Neuraxial Anesthesia: was administered and sensory block is resolving Anesthetic Complications: no major complications apparent and Pt Satisfied with anesthetic care
[2018-08-18] MEDS: SENNA 8.6 MG TAB PO SCH (20:27)
[2018-08-19] MEDS: KETOROLAC TROMETHAMINE 15 MG/ML VIAL IV SCH ×3 (00:15→12:24)
[2018-08-19] MEDS: ACETAMINOPHEN 500 MG TAB PO SCH (05:58)
[2018-08-19 06:10] VITALS: BP 149/74; PULSE 64; TEMP 97.9; O2SAT 96
--- NOTE | 2018-08-19 07:28 | Progress Note ---
DATE: 12/19/2018 SUBJECTIVE: A 73-year-old white female postop day 2 from left hip replacement. She is doing well. Pain is controlled. Therapy went well. No chest pain or shortness of breath. Not feeling dizzy or lightheaded. OBJECTIVE: VITAL SIGNS: Temperature 36.6. Vital signs stable. PHYSICAL EXAMINATION: GENERAL: Reveals a pleasant elderly female. She just walked from the bathroom to her bed and is getting around quite nicely. EXTREMITIES: Examination of left hip reveals the dressing to be clean, dry and intact. Hip is located. Thigh is soft and supple. She is neurologically intact. ASSESSMENT: A 73-year-old female postop day 2 from a left hip replacement, doing well. Pain is controlled. PLAN: 1. DVT prophylaxis including thigh-high TEDs, SCDs, and aspirin twice a day. 2. PT/OT. Weight bear as tolerated. Left total hip protocol. 3. Pain control, doing well with current pain regimen. 4. Anemia. Continue iron supplementation. 5. Disposition: Plan to discharge to home with some home health later today.
[2018-08-19] MEDS: DOCUSATE SODIUM 100 MG CAP PO SCH (09:06)
[2018-08-19] MEDS: MULTIVITAMIN TAB PO SCH (09:06)
[2018-08-19] MEDS: ASPIRIN 81 MG ECTAB PO SCH (09:06)
[2018-08-19] MEDS: FERROUS GLUCONATE 324 MG TAB PO SCH (09:06)
[2018-08-19] MEDS: CALCIUM 600MG + VIT D 400 IU TAB PO SCH (09:07)
--- NOTE | 2018-08-24 07:52 | Discharge Summary ---
ADMITTING PHYSICIAN AND SURGEON: Lai Elliott MD ADMITTING DIAGNOSIS: Left hip degenerative joint disease. SURGERY PERFORMED: Left total hip arthroplasty. SECONDARY DIAGNOSES: Arthritis, actinic keratosis, low back pain, sciatica. CONSULTS: None obtained. HISTORY AND PHYSICAL EXAMINATION: Well documented in the patient's chart. HOSPITAL COURSE: The patient was admitted on 08/17/2018, underwent total hip arthroplasty, tolerated the procedure well. There were no complications. She was transferred to the PACU postoperatively and later to the orthopedic floor for further care. She was given Ancef for antibiotic prophylaxis, LISS stockings, SCDs and aspirin for DVT prophylaxis. Hemoglobin, hematocrit and vital signs were monitored during hospital stay and remained stable. She did develop some postoperative anemia, did not require any blood transfusions. She did receive an iron supplement. There were no complications. By postoperative day 2, she was tolerating a regular diet, pain was controlled with oral pain medicine. She was participating in physical therapy. Postop day 2, she was discharged home, set up with home health services. She was given printed discharge instructions including new prescriptions for extra-strength Tylenol, aspirin, iron supplement and tramadol. Continue her home medicines. Continue physical therapy, weightbearing as tolerated, LISS stockings, total hip precautions. Follow up approximately 2 weeks postoperatively or sooner if there are any problems or concerns.
== END 2018-08-19 12:42 | disposition home health service (06) | DRG 470 ==
LOC: ASU 09:53 → 3E 15:36